=== PATIENT | male | born 1995 | race Caucasian/White ===

== ENCOUNTER 2020-12-24 00:50 | Emergency (ER) | payer OTHER ==
[~2020-12-24] VITALS: Ht 177.8 cm; Wt 75.7 kg
[2020-12-24] MEDS ORDERED: CEPHALEXIN500 M1 PO (03:37)
== END 2020-12-24 03:50 | disposition home or self-care (01) ==
LOC: ED 00:50
DX: S16.1XXA Strain of muscle, fascia and tendon at neck level, initial encounter (principal); S01.81XA Laceration without foreign body of other part of head, initial encounter; F90.9 Attention-deficit hyperactivity disorder, unspecified type; F31.9 Bipolar disorder, unspecified; F17.200 Nicotine dependence, unspecified, uncomplicated; V47.5XXA Car driver injured in collision with fixed or stationary object in traffic accident, initial encounter; Y93.I9 Activity, other involving external motion; Y92.89 Other specified places as the place of occurrence of the external cause; Y99.8 Other external cause status

== ENCOUNTER 2023-07-28 20:38 | Emergency (ER) | payer SELFPAY ==
[~2023-07-28] VITALS: Ht 180.3 cm; Wt 90.7 kg
[~2023-07-28 20:38] MED LIST: CEPHALEXIN500 M1 PO
[2023-07-28] MEDS ORDERED: SEPTDS PO (21:51)
[2023-07-28] MEDS ORDERED: PREDNISONE20 M1 PO (21:51)
== END 2023-07-28 22:11 | disposition home or self-care (01) ==
LOC: ED 20:38
DX: L23.7 Allergic contact dermatitis due to plants, except food (principal); L03.115 Cellulitis of right lower limb; F90.9 Attention-deficit hyperactivity disorder, unspecified type; F31.9 Bipolar disorder, unspecified

== ENCOUNTER → 2025-06-27 | Outpatient (CLI) | payer OTHER ==
[~2025-06-27] MED LIST changes: +PREDNISONE20 M1 PO; +SEPTDS PO
[2025-06-27 15:48] LABS: BILIRUBIN Negative (Negative); BLOOD Negative (Negative); CLARITY Clear (Clear); COLOR Yellow (Yellow); KETONE Trace (Negative); LEUKO ESTERASE Negative (Negative); NITRITE Negative (Negative); PH 7.0 (4.5-8.0); SPECIFIC GRAVITY 1.020 (1.001-1.030); UROBILINOGEN 1.0 E.U./dl (0.0-1.0)
[2025-06-27 15:51] LABS: BASO # 0.1 10*3/uL (0.0-0.1); BASO % 0.6 % (0.0-1.0); EOS # 0.3 10*3/uL (0.0-0.4); EOS % 3.0 % (1.0-4.0); MEAN CELL VOLUME 87.2 fl (80.0-94.0); MEAN CORPUSCULAR HGB 29.5 pg (27.0-31.0); MEAN PLATELET VOLUME 10.0 fl (9.6-12.3); MONO # 0.7 10*3/uL (0.1-1.0); MONO % 6.7 % (3.0-9.0); NEUT # 6.4 10*3/uL (2.3-7.9); NEUT % 61.6 % (47.0-73.0); NUCLEATED RED BLOOD CELL 0.0 % (0.0-0.0); NUCLEATED RED BLOOD CELL 0.0 10*3/uL (0.0-0.0); PLATELET COUNT AUTOMATED 287 10*3/uL (130-400); RED CELL DISTRI WIDTH 12.1 % (0-14.5); RETICULOCYTE % 1.27 % (0.50-2.50)
[2025-06-27 15:57] LABS: BACTERIA TRACE; EPITHELIAL CELLS 0-2; MUCOUS 2+; RBC 0-2 rbc/hpf (0-2)
[2025-06-27 16:21] LABS: BUN 14 mg/dl (9-23); GAMMA GLUTAMYL TRANSFERASE 23 U/L (0-73); LDL CHOLESTEROL 122 mg/dL (9-159); SGPT/ALT 32 U/L (5-49); T3 UPTAKE 26.1 % (22.4-36.7); THYROXINE (T4) TOTAL 6.5 ug/dl (4.5-10.9)
[2025-06-27 16:23] LABS: VITAMIN D, 25-HYDROXY 29.9 ng/mL (30-100)
[2025-06-28 15:07] LABS: ANTI-DSDNA ANTIBODIES 1 IU/mL (0-9)
== END | disposition home or self-care (01) ==
LOC: LAB 15:11
PROVIDERS: ATTEND Family Medicine
DX: M51.379 Other intervertebral disc degeneration, lumbosacral region without mention of lumbar back pain or lower extremity pain (principal); E78.5 Hyperlipidemia, unspecified; E55.9 Vitamin D deficiency, unspecified; R53.83 Other fatigue; R79.89 Other specified abnormal findings of blood chemistry